=== PATIENT | male | born 1940 | race Caucasian/White ===

== ENCOUNTER 2023-01-30 12:09 | Observation (INO) | payer MEDICARE, SELFPAY ==
[2023-01-30] VITALS (27 sets, daily range): BP systolic 110–137; BP diastolic 55–74; PULSE 62–82; RESP 15–26; TEMP 36.2–36.6; O2SAT 93–100; BMI 25.5
--- NOTE | ~2023-01-30 | XR_ITS ---
EXAMINATION: XR chest 2V DATE: 01/30/2023 12:42 INDICATION: Shortness of breath. Chest tightness. TECHNIQUE: Frontal and lateral views of the chest were obtained. COMPARISON: None. FINDINGS: There is a diffuse interstitial pattern, consistent mild pulmonary edema. There are small p leural effusions. There is mild atelectasis in the lower lung zones. No pneumothorax. The heart size is normal. Median sternotomy wires and mediastinal surgical clips are seen, likely from prior coronar y artery bypass grafting. There is a left chest pacer with lead in right ventricle. There is a right shoulder arthroplasty. IMPRESSION: 1. Mild pulmonary edema. 2. Small pleural effusions. Reviewed, dictated and finalized at location A.
--- NOTE | 2023-01-30 12:13 | ECG_ITS ---
Measurements Intervals [place] Rate: 80 P: RI: 0 QRS: -75 QRSD: 181 T: 98 QT: 471 QTc: 546 Interpretive Statements ELECTRONIC VENTRICULAR PACEMAKER BASELINE ARTIFACT- I, II, AVR, V1 NO FURTHER INTERPRETATION IS POSSIBLE ATYPICAL ECG NO PREVIOUS ECG AVAILABLE FOR COMPARISON Electronically Signed On 01-30-2023 13:04:34 CDT by Nicolas Dyson D.O.
[2023-01-30 12:28] LABS: Basophils Percent Auto 0.6 % (0.2-1.2); Eosinophils Absolute Auto 0.3 K/mm3 (0-0.3); Eosinophils Percent Auto 5.7 % (0-4.4); Hematocrit 38.9 % (42.0-52.0); Hemoglobin 11.7 g/dL (14.0-18.0); Immature Granulocyte Absolute 0.01 K/mm3 (0.00-0.031); Immature Granulocyte Percent A 0.2 % (0-0.5); Lymphocytes Absolute Auto 1.11 K/mm3 (0.9-3.2); Lymphocytes Percent Auto 20.5 % (18.3-44.2); Mean Corpuscular HGB Conc 30.1 g/dl (32-36); Mean Corpuscular Hemoglobin 27.6 pg (26-34); Mean Corpuscular Volume 91.7 fl (80-100); Mean Platelet Volume 9.7 fl (7.4-10.4); Monocytes Absolute Auto 0.5 K/mm3 (0.1-0.6); Monocytes Percent Auto 8.3 % (2.6-8.5); Neutrophils Absolute Auto 3.5 K/mm3 (1.3-6.7); Neutrophils Percent Auto 64.7 % (45.5-73.1); Platelet Count Result 183 k/mm3 (150-375); Red Blood Count 4.24 M/mm3 (4.6-6.20); Red Cell Distribution Width 15.4 % (11.5-14.5); White Blood Count 5.4 K/mm3 (4.5-10.0)
[2023-01-30 12:40] LABS: Alanine Aminotransferase 29 U/L (6-50); Albumin Level 4.1 g/dL (3.5-5.1); Alkaline Phosphatase 120 U/L (38-126); Anion Gap 8 mmol/L (8-16); Aspartate Amino Transferase 33 U/L (17-59); Bilirubin,Total 0.9 mg/dL (0.2-1.3); Blood Urea Nitrogen 29 mg/dL (9-20); Calcium 9.8 mg/dL (8.4-10.2); Carbon Dioxide 30 mmol/L (22-30); Chloride 106 mmol/L (98-107); Estimated CRCL calculation 65 ml/min; Estimated Glomerular Filt Rate > 60; Glucose 84 mg/dL (65-110); Potassium 4.3 mmol/L (3.4-5.0); Sodium 144 mmol/L (137-145)
[2023-01-30 13:58] LABS: INR 1.9; Prothrombin Time 22.7 Seconds (11.1-14.7)
[2023-01-30 13:59] LABS: Partial Thromboplastin Time 48.1 SECONDS (22.3-36.8)
[2023-01-30 14:47] LABS: NT Pro B Type Natriuretic Pept 5230 pg/mL (19.9-100); Troponin I 0.014 ng/mL (0.000-0.034)
--- NOTE | 2023-01-30 15:39 | ED.GENADULT ---
HPI - General Adult General Chief complaint: Shortness of Breath/Dyspnea Stated complaint: sob Time Seen by Provider: 01/30/23 12:28 History of Present Illness HPI narrative: Patient is an 82-year-old male who presents ER with chest pain and shortness of breath. Chest pain occurred last night and has also occurred while in the ER. Has difficulty describing it. Patient has Alzheimer's. He does report he is also been short of breath at night when lying down. He has history of cardiac bypass. He does not have a local manager pediatric as he just moved here from [facility]. No fevers or chills or sweats. Daughter who is helping care for him is present and helping provide history. Related Data Home Medications Medication Instructions Recorded Confirmed atorvastatin 40 mg tablet 40 mg PO HS 11/27/22 01/30/23 cholecalciferol (vitamin D3) 25 25 mcg PO DAILY 11/27/22 01/30/23 mcg (1,000 unit) capsule furosemide 40 mg tablet 80 mg PO BID 11/27/22 01/30/23 metoprolol succinate 50 mg 50 mg PO BID 11/27/22 01/30/23 tablet,extended release 24 hr potassium chloride 20 mEq 20 meq PO BID 11/27/22 01/30/23 tablet,extended release rivaroxaban 15 mg tablet (Xarelto) 15 mg PO DAILY 11/27/22 01/30/23 aripiprazole 5 mg tablet 5 mg PO DAILY 01/30/23 01/30/23 ferrous sulfate 325 mg (65 mg 325 mg PO EVERY OTHER DAY 01/30/23 01/30/23 iron) tablet (Iron (ferrous sulfate)) Allergies Allergy/AdvReac Type Severity Reaction Status Date / Time nitrofurantoin Allergy Mild Hives Verified 11/27/22 10:12 [From Macrobid] Review of Systems Review of Systems: ROS unobtainable: Yes unobtainable due to mental status (Dementia) [facility] Past Medical History Medical History (Updated 01/30/23 @ 22:04 by Gerardo Campo MD) Alzheimer's dementia Arthritis Cerebrovascular accident Congestive heart failure (CHF) Hypertension Surgical History Surgical History (Updated 01/30/23 @ 22:02 by Gerardo Campo MD) Hx of CABG Family History Family History Father Cancer Diabetes mellitus Heart disease Mother Cancer Hypertension Heart disease Cerebrovascular accident Sibling Cancer Social History Social History (Updated 11/27/22 @ 10:17 by Sudha Fong [facility]) Smoking packs per day: 3 Smoking cigarettes per day: 60.0 Years smoked: 5 Smoking pack-years: 15.00 Smoking status: Former smoker Tobacco type: cigarettes Alcohol intake: never Alcohol use details: Twice a year Substance use: never Substance use type: does not use Lack of Transportation: No Lack of Food: Never True Current Housing: I Have Housing Concerned About Future Housing: No Difficulty Paying Gas/Electric Bills: No Difficulty Paying for Meds: No Currently Unemployed: No Education: Trade/Vocational Certificate Difficulty w/ Childcare or Family Care: No Spiritual care concerns: No Exam Narrative: GENERAL: Well-appearing, well-nourished, and in no acute distress. HEAD: Normocephalic, atraumatic. ENT: Mucous membranes moist. CHEST: Clear to auscultation. No respiratory distress. HEART: Regular rate and rhythm. Normal peripheral pulses. ABDOMEN: Soft, nontender, nondistended. EXTREMITIES: Normal range of motion. No edema. SKIN: Warm, dry, no rash. NEURO: Alert and oriented x2. PSYCH: Normal mood and affect. Course Course Emergency Course: Will admit for observation. May be having mild heart failure exacerbation given pulmonary edema and elevated BNP. Troponin negative at this time. We will continue to trend. Excepted by hospitalist service. Vital Signs Vital signs: Vital Signs Temperature 98 F 01/30/23 12:08 Pulse Rate 75 01/30/23 12:08 Respiratory Rate 16 01/30/23 12:08 Blood Pressure 127/74 01/30/23 12:08 Pulse Oximetry 100 01/30/23 12:08 Oxygen Delivery Room Air 01/30/23 12:08 Temperature 97.7 F
--- NOTE | 2023-01-30 15:43 | PM.IMHP ---
H&P: HPI History of Present Illness Date/Time: 01/30/23 15:43 Chief Complaint: chest pain shortness of breath Narrative: this is an 82-year-old male patient with a history of Alzheimer's dementia who is admitted to the hospital for observation related to recurrent chest pain and nocturnal orthopnea. Family brought patient to the emergency department due to complaints of chest pain shortness a breath. Patient has a history of CABG, CHF, hypertension, CVA, Alzheimer's and arthritis. Patient recently moved to the area is not established with Cardiology. On my evaluation patient is pleasant but confused. Family is not present so HPI and ROS are limited. When I introduce myself patient asks are you my new heart doctor? Patient currently denies any complaints but states that sometimes he has trouble breathing when he lays down. Review of Systems Review of Systems: ROS unobtainable: Yes unobtainable due to mental status PMFSH Past Medical History Medical History (Updated 01/31/23 @ 00:06 by Oneal Grant APRN) Alzheimer's dementia Arthritis Cerebrovascular accident Congestive heart failure (CHF) Hypertension Surgical History Surgical History Hx of CABG Family History Family History Father Cancer Diabetes mellitus Heart disease Mother Cancer Hypertension Heart disease Cerebrovascular accident Sibling Cancer Social History Social History Smoking packs per day: 3 Smoking cigarettes per day: 60.0 Years smoked: 5 Smoking pack-years: 15.00 Smoking status: Former smoker Tobacco type: cigarettes Alcohol intake: never Alcohol use details: Twice a year Substance use: never Substance use type: does not use Lack of Transportation: No Lack of Food: Never True Current Housing: I Have Housing Concerned About Future Housing: No Difficulty Paying Gas/Electric Bills: No Difficulty Paying for Meds: No Currently Unemployed: No Education: Trade/Vocational Certificate Difficulty w/ Childcare or Family Care: No Spiritual care concerns: No Meds Home Medications and Allergies Home Medications Medication Instructions Recorded Confirmed Type atorvastatin 40 mg tablet 40 mg PO HS 11/27/22 01/30/23 History cholecalciferol (vitamin D3) 25 25 mcg PO DAILY 11/27/22 01/30/23 History mcg (1,000 unit) capsule furosemide 40 mg tablet 80 mg PO BID 11/27/22 01/30/23 History metoprolol succinate 50 mg 50 mg PO BID 11/27/22 01/30/23 History tablet,extended release 24 hr potassium chloride 20 mEq 20 meq PO BID 11/27/22 01/30/23 History tablet,extended release rivaroxaban 15 mg tablet (Xarelto) 15 mg PO DAILY 11/27/22 01/30/23 History aripiprazole 5 mg tablet 5 mg PO DAILY 01/30/23 01/30/23 History ferrous sulfate 325 mg (65 mg 325 mg PO EVERY OTHER DAY 01/30/23 01/30/23 History iron) tablet (Iron (ferrous sulfate)) Allergies Allergy/AdvReac Type Severity Reaction Status Date / Time nitrofurantoin Allergy Mild Hives Verified 11/27/22 10:12 [From Macrobid] Vital Signs Vital Signs - 24 hr 01/30/23 12:08 01/30/23 12:12 01/30/23 12:13 Temperature 36.6 C Pulse Rate 75 76 81 Respiratory Rate 16 22 H 20 Blood Pressure 127/74 127/74 Pulse Oximetry 100 99 97 Oxygen Delivery Room Air 01/30/23 12:15 01/30/23 12:16 01/30/23 12:30 Temperature Pulse Rate 81 82 78 Respiratory Rate 17 19 22 H Blood Pressure 126/73 Pulse Oximetry 100 99 99 Oxygen Delivery 01/30/23 12:31 01/30/23 12:45 01/30/23 13:05 Temperature Pulse Rate 78 81 Respiratory Rate 18 23 H Blood Pressure 137/74 Pulse Oximetry 98 99 Oxygen Delivery 01/30/23 13:18 01/30/23 13:30 01/30/23 13:45 Temperature Pulse Rate 78 79 81 Respiratory Rate 16 19 26 H Blood Pressure Pu
[2023-01-30 15:46] LABS: Troponin I 0.013 ng/mL (0.000-0.034)
[2023-01-30] MEDS: FUROSEMIDE INJ 40 MG/4 ML VIAL 20 MG IV PUSH (15:56)
--- NOTE | 2023-01-30 16:39 | ADMGEN ---
This patient, Geovany Ugalde, was admitted to IMU Room 201-01. Patient/family oriented to hospital policies and general routines including ID bracelet, bed and alarms, visiting hours, pain management, procedures, bathroom and other care routines, personal items, smoking policy, room service/diet, and visiting hours. Information on how to activate the Rapid Response Team has been discussed. Patient/Family are encouraged to report perceived risks to care and to ask questions if they do not understand what they are told or what they should do.
[2023-01-30] MEDS: RIVAROXABAN 15 MG TABLET PO (19:07)
[2023-01-30 20:16] LABS: Troponin I 0.013 ng/mL (0.000-0.034)
[2023-01-31] VITALS (11 sets, daily range): BP systolic 105–113; BP diastolic 49–68; PULSE 63–96; RESP 16–18; TEMP 36.4–36.8; O2SAT 91–96
--- NOTE | 2023-01-31 | ECHO_ITS ---
Patient Info Name: Geovany Ugalde Age: 82 years : 1940 Gender: Male Ht: 74 in Wt: 204 lbs BSA: 2.21 m2 HR: 78 bpm BP: 107 / 51 mmHg Technical Quality: Fair Exam Date: 01/31/2023 9:03 AM Exam Location: [facility] Exam Room: 204 Patient Status: Inpatient Admit Date: 01/30/2023 Staff Ordering Physician: Oneal Grant APRN Health Promotion Officer: Rayna Bunch RDCS Attending Provider: West Colon MD Referring Physician: Rudy LOPEZ; Exam Type: CA echo dop color flow w con Study Info Indications - cad cabg chf c/o chest pain Complete two-dimensional, color flow and Doppler transthoracic echocardiogram is performed with contrast to opacify the left ventricle and to improve the deliniation of the left ventricle endocardial borders. Contrast/Agitated Saline Contrast/Ag. Saline: Definity Amount: 2.00 ml Administered By: Rayna Bunch [facility] Existing IV Access: Yes IV Access Condition: patent with no signs of infiltration Summary 1. Left ventricular systolic function is normal, estimated at >70%. 2. There is mildly increased left ventricular wall thickness. 3. The left ventricular diastolic function is abnormal. 4. Right ventricular chamber dimension is mildly enlarged. 5. Right ventricular systolic function is reduced. 6. Linear artifact in right ventricle suggestive of catheter(s), pacemaker lead(s), or ICD lead(s). 7. Left atrial chamber dimension is severely enlarged. 8. Right atrial chamber dimension is moderately enlarged. 9. There is mild aortic valve regurgitation. 10. There is mild aortic valve calcification. 11. There is mild to moderate mitral valve regurgitation. 12. There is moderate mitral valve calcification. 13. There is moderate tricuspid valve regurgitation. 14. Severe pulmonary hypertension, estimated pulmonary arterial systolic pressure is 59 mmHg. 15. There is mild pulmonic regurgitation. Left Ventricle Left ventricular chamber dimension is normal. Left ventricular systolic function is normal, estimated at >70%. There is mildly increased left ventricular wall thickness. Left ventricular septal wall motion is normal. The left ventricular diastolic function is abnormal. Right Ventricle Right ventricular chamber dimension is mildly enlarged. Right ventricular systolic function is reduced. Linear artifact in right ventricle suggestive of catheter(s), pacemaker lead(s), or ICD lead(s). Left Atria Left atrial chamber dimension is severely enlarged. Right Atria Right atrial chamber dimension is moderately enlarged. Aortic Valve The aortic valve is trileaflet. There is no aortic valve stenosis. There is mild aortic valve regurgitation. There is mild aortic valve calcification. Pulmonic Valve The pulmonic valve is normal. There is no pulmonic valve stenosis. There is mild pulmonic regurgitation. Mitral Valve The mitral valve has normal leaflets. There is no mitral valve stenosis. There is mild to moderate mitral valve regurgitation. There is moderate mitral valve calcification. Tricuspid Valve The tricuspid valve leaflets are normal. There is no significant tricuspid valve stenosis. There is moderate tricuspid valve regurgitation. Severe pulmonary hypertension, estimated pulmonary arterial systolic pressure is 59 mmHg. Pericardium/Pleural The pericardium appears normal. There is no pericardial effusion. Inferior Vena Cava Dilated inferior vena cava with >50% collapse upon inspiration consistent with Empty right atrial pressure, 10 mmHg. A
[2023-01-31] MEDS: ATORVASTATIN 40 MG TABLET PO (01:07)
[2023-01-31 04:22] LABS: Basophils Percent Auto 0.7 % (0.2-1.2); Eosinophils Absolute Auto 0.3 K/mm3 (0-0.3); Hematocrit 36.9 % (42.0-52.0); Hemoglobin 11.5 g/dL (14.0-18.0); Immature Granulocyte Absolute 0.01 K/mm3 (0.00-0.031); Immature Granulocyte Percent A 0.2 % (0-0.5); Lymphocytes Absolute Auto 1.01 K/mm3 (0.9-3.2); Lymphocytes Percent Auto 22.8 % (18.3-44.2); Mean Corpuscular HGB Conc 31.2 g/dl (32-36); Mean Platelet Volume 9.9 fl (7.4-10.4); Monocytes Absolute Auto 0.4 K/mm3 (0.1-0.6); Monocytes Percent Auto 7.9 % (2.6-8.5); Neutrophils Absolute Auto 2.7 K/mm3 (1.3-6.7); Neutrophils Percent Auto 61.4 % (45.5-73.1); Platelet Count Result 176 k/mm3 (150-375); Red Cell Distribution Width 15.3 % (11.5-14.5); White Blood Count 4.4 K/mm3 (4.5-10.0)
[2023-01-31 04:36] LABS: Alanine Aminotransferase 28 U/L (6-50); Albumin Level 3.6 g/dL (3.5-5.1); Alkaline Phosphatase 124 U/L (38-126); Anion Gap 7 mmol/L (8-16); Aspartate Amino Transferase 31 U/L (17-59); Bilirubin,Total 0.8 mg/dL (0.2-1.3); Blood Urea Nitrogen 26 mg/dL (9-20); Calcium 9.6 mg/dL (8.4-10.2); Carbon Dioxide 29 mmol/L (22-30); Chloride 106 mmol/L (98-107); Estimated CRCL calculation 73 ml/min; Estimated Glomerular Filt Rate > 60; Glucose 97 mg/dL (65-110); Sodium 142 mmol/L (137-145)
[2023-01-31] MEDS: ARIPiprazole 5 MG TABLET PO (08:17)
[2023-01-31] MEDS: METOPROLOL SUCCINATE EXT REL 50 MG TABCR PO (08:17)
[2023-01-31] MEDS: FUROSEMIDE 40 MG TABLET 80 MG PO (08:17)
[2023-01-31] MEDS: CHOLECALCIFEROL 1,000 UNITS TABLET 1000 UNITS PO (08:17)
[2023-01-31] MEDS: POTASSIUM CHLORIDE 20 MEQ ER TABLET PO (08:17)
--- NOTE | 2023-01-31 09:40 | PM.CNCAR ---
Assessment and Plan Assessment and plan (1) Congestive heart failure: Code(s): I50.9 - Heart failure, unspecified Status: Acute Assessment and Plan: Patient was admitted to the hospital because of chest pain, shortness of breath. Elevated brain atretic peptide. Chest x-ray was reported as congestion. Small pleural effusions. He received 20 mg IV Lasix x1. Currently on p.o. Lasix 80 mg b.i.d. which is home does. Appears to be euvolemic. BUN to creatinine ratio is high. Awaiting echocardiogram results. Not requiring oxygen at this time. Last echo 2018 shows normal ejection fraction 60% and severe left atrial enlargement and a loculated pericardial effusion which was small there was at that time evidence of mild systolic anterior motion of the mitral valve with no significant LVOT obstruction. (2) Chest pain: Code(s): R07.9 - Chest pain, unspecified Status: Acute Assessment and Plan: Patient reported to have a history of CABG with ERNANDEZ to LAD, radial artery to PDA 2018. It was mentioned that he had chest pain. Troponins x3 negative. Currently patient is not having chest pain. (3) Hypertension: Code(s): I10 - Essential (primary) hypertension Status: Acute Assessment and Plan: Blood pressure controlled. Continue metoprolol. (4) Alzheimer's dementia: Code(s): G30.9 - Alzheimer's disease, unspecified; F02.80 - Dementia in other diseases classified elsewhere, unspecified severity, without behavioral disturbance, psychotic disturbance, mood disturbance, and anxiety Status: Acute Assessment and Plan: Patient is only oriented to year but not month. Poor historian. (5) Atrial fibrillation: Code(s): I48.91 - Unspecified atrial fibrillation Status: Acute Assessment and Plan: Chronic atrial fibrillation. Rate controlled. Continue Xarelto. History of Present Illness History of Present Illness Consult date/time: Date of service 01/31/23 09:40 Requesting physician: Oneal Grant APRN Consult reason: chest pain and congestive heart failure Reason For Visit: Chest Pain/CHF Exacerbation Narrative: This is a 82-year-old patient with a history of Alzheimer dementia, left carotid endarterectomy, history of CABG 2018 by ERNANDEZ to LAD, radial artery to PDA, chronic atrial fibrillation, pacemaker, hypertension, hyperlipidemia, peripheral arterial disease who follows with [facility] with last ejection fraction in our system of 60% in 2018 with severe left atrial enlargement, mild Rah not causing significant LVOT obstruction, small loculated pericardial effusion was brought into the hospital with chest pain and shortness of breath. I tried to take history from the patient but he has very poor historian. No family on bedside. Spoke to his nurse she reported no events overnight. Currently patient on room air. Not complaining at this time of chest pain or shortness of breath. He states that it is 2022 but the month is March. His telemetry shows ventricular paced rhythm with short runs of atrial fibrillation. Unremarkable CBC, BUN 29, creatinine 0.9, troponins x3 negative, brain atretic peptide 5200, albumin 3.6, chest x-ray reviewed and as muscle shows vascular congestion and small pleural effusions. EKG reviewed and d and analyzed myself shows ventricular pacing. Review of Systems Review of Systems: ROS unobtainable: Yes unobtainable due to mental status and other (ROS obtained from the chart, speaking to the nurse. No family ON BEDSIDE) [facility] Past Medical History Medical History (Updated 01/31/23 @ 10:01 by Alex Harrell MD) Alzheimer's dementia Arthritis Atrial fibrillation Cerebrovascular accident Congestive heart failure (CHF) Hypertension Surgical History Surgical History Hx of CABG Family History Family History (Reviewed 01/31/23 @ 09:5
[2023-01-31] MEDS: PERFLUTREN LIPID MICROSPHERES 1.5 ML VIAL DILUTED TO 10 ML TOTAL VOLUME IV PUSH (10:25)
--- NOTE | 2023-01-31 11:29 | IVDEFINITY ---
Prior to administration of IV Definity the patient was educated on the risks and benefits of the imaging enhancing agent including potential adverse side effects. The patient verbalized understanding. Allergies were verified. No exclusion criteria were identified and at least one of the following inclusion criteria were met: 1) physician request, 2) patient technically difficult to image (per the [place] [employer]chocardi[employer] guidelines of two or more segments not discernable within the apical view), or 3) questionable left ventricular function. ?
--- NOTE | 2023-01-31 11:31 | PM.IMPN ---
Progress Note: A&P Assessment and Plan (1) Congestive heart failure: Code(s): I50.9 - Heart failure, unspecified Status: Acute Assessment and Plan: History of congestive heart failure, no records available. Mild pulmonary edema small pleural effusions on chest x-ray. BNP elevated. Ordered echocardiogram and Cardiology consult as requested by the emergency department provider. No evident dyspnea at this time. Lung sounds primarily clear. (2) Chest pain: Code(s): R07.9 - Chest pain, unspecified Status: Acute Assessment and Plan: Poorly described intermittent chest pain, troponin negative, EKG paced rhythm. (3) Alzheimer's dementia: Code(s): G30.9 - Alzheimer's disease, unspecified; F02.80 - Dementia in other diseases classified elsewhere, unspecified severity, without behavioral disturbance, psychotic disturbance, mood disturbance, and anxiety Status: Acute Assessment and Plan: Pleasantly confused, family states he will get worse at night. Reportedly patient was upset that family was not taking him to [email or web address] when he complained of chest pain so he thought he could walk to [email or web address]. (4) Hypertension: Code(s): I10 - Essential (primary) hypertension Status: Acute Assessment and Plan: blood pressure stable. Continue home medications. Plan Admitted for echocardiogram and Cardiology consult. Admit to IMU echocardiogram ordered patient received dose of IV Lasix in the emergency department with resolution of shortness of breath diet: Heart healthy VT prophylaxis: Xarelto pain: Tylenol, hydrocodone, morphine p.r.n. according to pain level nausea: Zofran p.r.n. code status: Full code consult: Cardiology Subjective Date/time seen: 01/31/23 11:31 Interval history: No overnight events noted. No chest pain or shortness of breath. No nausea, vomiting or diarrhea. No fevers or chills. Review of Systems Review of Systems: 12 point review of systems was assessed and was negative except as noted in the HPI Exam Narrative: General: No acute distress, alert and oriented per baseline HEENT: Atraumatic, normocephalic, mucous membranes moist CV: Regular rate and rhythm, S1, S2 Lungs: Clear to auscultation bilaterally, no rales or crackles noted, no wheezes, good air entry Abdomen: Soft, nontender, nondistended Extremities: Normal to inspection Skin: No rashes noted, no lesions or wounds seen Psych: Euthymic, normal affect Objective Data Vital Signs Vital Signs: Vital Signs - 24 hr 01/30/23 12:08 01/30/23 12:12 01/30/23 12:13 Temperature 98 F Pulse Rate 75 76 81 Respiratory Rate 16 22 H 20 Blood Pressure 127/74 127/74 Pulse Oximetry 100 99 97 Oxygen Delivery Room Air 01/30/23 12:15 01/30/23 12:16 01/30/23 12:30 Temperature Pulse Rate 81 82 78 Respiratory Rate 17 19 22 H Blood Pressure 126/73 Pulse Oximetry 100 99 99 Oxygen Delivery 01/30/23 12:31 01/30/23 12:45 01/30/23 13:05 Temperature Pulse Rate 78 81 Respiratory Rate 18 23 H Blood Pressure 137/74 Pulse Oximetry 98 99 Oxygen Delivery 01/30/23 13:18 01/30/23 13:30 01/30/23 13:45 Temperature Pulse Rate 78 79 81 Respiratory Rate 16 19 26 H Blood Pressure Pulse Oximetry 98 98 100 Oxygen Delivery 01/30/23 14:00 01/30/23 14:04 01/30/23 14:15 Temperature Pulse Rate 81 79 77 Respiratory Rate 17 16 19 Blood Pressure 118/66 Pulse Oximetry 95 97 96 Oxygen Delivery 01/30/23 14:16 01/30/23 14:35 01/30/23 14:55 Temperature Pulse Rate 78 76 76 Respiratory Rate 22 H 22 H 25 H Blood Pressure 117/64 Pulse Oximetry 97 99 100 Oxygen Delivery 01/30/23 15:02 01/30/23 15:22 01/30/23 15:30 Temperature 97.6 F Pulse Rate 76 76 73 Respiratory Rate 19 16 15 Blood Pressure 130/64 Pulse Oximetry 96 97 93 Oxygen Delivery 01/30/23 16:15 01/30/23 16:45 01/30/23 18:
--- NOTE | 2023-01-31 14:15 | PM.DS ---
DS: Admitting Diagnosis Discharge Date 01/31/2023 Admitting Diagnosis Chest pain, shortness a breath DS: Summary Hospital Course Hospital Course: 82-year-old male with history of dementia, CABG, atrial fibrillation among other comorbidities is presenting with chest pain shortness a breath. Small pleural effusions.? He received 20 mg IV Lasix x1.? Currently on p.o. Lasix 80 mg b.i.d. which is home does.? Appears to be euvolemic.? BUN to creatinine ratio is high.? Awaiting echocardiogram results.? Not requiring oxygen at this time.? Last echo 2017 shows normal ejection fraction 60% and severe left atrial enlargement and a loculated pericardial effusion which was small there was at that time evidence of mild systolic anterior motion of the mitral valve with no significant LVOT obstruction. Please see above and med rec for details. Time Spent with Patient Time attestation: Total time spent providing and/or coordinating discharge services: DS: Data Data Completed and Pending Labs on day of discharge: Labs from last 24 hours 01/31/23 01/30/23 01/30/23 03:59 19:38 15:12 WBC 4.4 L RBC 4.10 L Hgb 11.5 L Hct 36.9 L MCV 90.0 MCH 28.0 MCHC 31.2 L RDW 15.3 H Plt Count 176 MPV 9.9 Immature Gran % (Auto) 0.2 Neut % (Auto) 61.4 Lymph % (Auto) 22.8 Haines % (Auto) 7.9 Eos % (Auto) 7.0 H Baso % (Auto) 0.7 Lymph # (Auto) 1.01 Haines # (Auto) 0.4 Eos # (Auto) 0.3 Baso # (Auto) 0.0 Abs Immat Gran (auto) 0.01 Absolute Neuts (auto) 2.7 Absolute Nucleated RBC 0.0 Nucleated RBC % 0.0 Sodium 142 Potassium 4.0 Chloride 106 Carbon Dioxide 29 Anion Gap 7 L BUN 26 H Creatinine 0.80 Estim Creat Clear Calc 73 Estimated GFR > 60 Glucose 97 Calcium 9.6 Total Bilirubin 0.8 AST 31 ALT 28 Alkaline Phosphatase 124 Troponin I 0.013 0.013 NT-Pro-B Natriuret Pep Total Protein 7.0 Albumin 3.6 01/30/23 12:21 WBC RBC Hgb Hct MCV MCH MCHC RDW Plt Count MPV Immature Gran % (Auto) Neut % (Auto) Lymph % (Auto) Haines % (Auto) Eos % (Auto) Baso % (Auto) Lymph # (Auto) Haines # (Auto) Eos # (Auto) Baso # (Auto) Abs Immat Gran (auto) Absolute Neuts (auto) Absolute Nucleated RBC Nucleated RBC % Sodium Potassium Chloride Carbon Dioxide Anion Gap BUN Creatinine Estim Creat Clear Calc Estimated GFR Glucose Calcium Total Bilirubin AST ALT Alkaline Phosphatase Troponin I 0.014 NT-Pro-B Natriuret Pep 5230 H Total Protein Albumin Discharge Plan Discharge Attending physician on discharge: Kacey Carlson Consulting providers: Sonia Kelly Discharging Clinician: Kacey Carlson Patient Disposition: Home, Self-Care Activity: as tolerated Diet: as tolerated Patient Instructions: Antibiotic Form, Rivaroxaban (By mouth) Stand Alone Forms: General Discharge Information Follow-up/Referrals: Sonia Kelly, [Physician] - PHYSICIAN NOT ON STAFF,NONSTAFF [Primary Care Provider] - Discharge Medications: Continued aripiprazole 5 mg tablet 5 mg PO DAILY ferrous sulfate [Iron (ferrous sulfate)] 325 mg (65 mg iron) Tablet 325 mg PO EVERY OTHER DAY Rx Instructions: mon-wed-fri atorvastatin 40 mg tablet 40 mg PO HS cholecalciferol (vitamin D3) 25 mcg (1,000 unit) capsule 25 mcg PO DAILY furosemide 40 mg tablet 80 mg PO BID metoprolol succinate 50 mg tablet extended release 24 hr 50 mg PO BID potassium chloride 20 mEq tablet extended release 20 meq PO BID Xarelto 15 mg tablet 15 mg PO DAILY Rx Instructions: must administer with evening meal Date of admission: 01/30/23 15:40 Primary Care Provider: PHYSICIAN NOT ON STAFF,NONSTAFF Admitting Provider: West Colon Attending physician on admission: West Colon Condition: Stable
== END 2023-01-31 15:30 | disposition home or self-care (01) ==
LOC: ANHED 12:36 → ANHIMU 16:31
PROVIDERS: General Practice; Nurse Practitioner; Admitting Provider Chiropractor; Emergency Provider Emergency Medicine; Visit Provider Student in an Organized Health Care Education/Training Program
DX: I11.0 Hypertensive heart disease with heart failure (principal); I50.9 Heart failure, unspecified; G30.9 Alzheimer's disease, unspecified; F02.80 Dementia in other diseases classified elsewhere, unspecified severity, without behavioral disturbance, psychotic disturbance, mood disturbance, and anxiety; I48.91 Unspecified atrial fibrillation; I08.3 Combined rheumatic disorders of mitral, aortic and tricuspid valves; I27.20 Pulmonary hypertension, unspecified; J81.1 Chronic pulmonary edema; I25.10 Atherosclerotic heart disease of native coronary artery without angina pectoris; R79.89 Other specified abnormal findings of blood chemistry; J90 Pleural effusion, not elsewhere classified; Z95.1 Presence of aortocoronary bypass graft; M19.90 Unspecified osteoarthritis, unspecified site; F10.90 Alcohol use, unspecified, uncomplicated; Z87.891 Personal history of nicotine dependence; Z86.73 Personal history of transient ischemic attack (TIA), and cerebral infarction without residual deficits; Z79.01 Long term (current) use of anticoagulants; Z82.49 Family history of ischemic heart disease and other diseases of the circulatory system; Z82.3 Family history of stroke
CPT/HCPCS: 36415; 71046; 80053; 83880; 84484; 85025; 85610; 85730; 93005; 96374; 96375; 99285; A9270; C8929; G0378; J1940; Q9957